=== PATIENT | male | born 1995 | race African-American/Black ===

== ENCOUNTER 2019-06-02 17:36 | Emergency (ER) | payer MEDICARE, MEDICAID, SELFPAY ==
[2019-06-02 17:42] VITALS: BP 115/65; PULSE 61; RESP 16; TEMP 36.3; O2SAT 100
--- NOTE | 2019-06-02 17:46 | ED.GENADULT ---
HPI - General Adult General Chief complaint: Urogenital-Male Stated complaint: Urinary problems Time Seen by Provider: 06/02/19 17:45 Source: patient Mode of arrival: ambulatory Limitations: no limitations History of Present Illness HPI narrative: 24-year-old male patient presents to the [facility] with complaints of urinary symptoms for the past week. Patient states he has had some burning with urination. Patient states he has been doing a water fast recently to where he is on 6 days of drinking only water and has not been eating. Patient states that he is sexually active with 2 partners and did not use protection. Patient states that he has been recently checked for STDs but it was in early May. Patient states he has been sexually active since then. Patient denies any penile discharge. Denies any fevers, lower abdominal pain, low back pain. Related Data Allergies Allergy/AdvReac Type Severity Reaction Status Date / Time No Known Allergies Allergy Uncoded 02/04/19 20:55 Review of Systems Review of Systems: Narrative: CONSTITUTIONAL: Denies fever, chills, or sweats. EYES: Denies visual changes, redness, or discharge. ENT: Denies rhinorrhea, congestion, sore throat, or otalgia. CARDIOVASCULAR: Denies chest pain, palpitations, or edema. RESPIRATORY: Denies cough or dyspnea. GASTROINTESTINAL: Denies abdominal pain, nausea, vomiting, or diarrhea. GENITOURINARY: Denies dysuria or hematuria. Positive pain with urination x1 week. SKIN: Denies rash or itching. MUSCULOSKELETAL: Denies back pain, joint pain, or myalgia. NEUROLOGIC: Denies headache, numbness, or weakness. PSYCHIATRIC: Denies anxiety or depression. PMFSH Comments At the time of my signature I agree with nursing past medical history, surgical, social, and family history. There is no relevant family history pertinent to the presenting complaint. Exam Narrative: Exam Narrative: GENERAL: Well-appearing, well-nourished, and in no acute distress. HEAD: Normocephalic, atraumatic. EYES: PERRLA and EOMI. ENT: Nares clear, no rhinorrhea or epistaxis. Mucous membranes moist. NECK: Supple. No lymphadenopathy CHEST: Clear to auscultation. No respiratory distress. HEART: Regular rate and rhythm. No murmur heard. Normal peripheral pulses. ABDOMEN: Soft, nontender, nondistended, normal active bowel sounds. No CVA tenderness on percussion. EXTREMITIES: Normal range of motion. No edema. SKIN: Warm, dry, no rash. NEURO: No focal deficits. Alert and oriented x3. Course Vital Signs Vital signs: Vital Signs Temperature 36.3 C L 06/02/19 17:42 Pulse Rate 61 06/02/19 17:42 Respiratory Rate 16 06/02/19 17:42 Blood Pressure 115/65 06/02/19 17:42 Pulse Oximetry 100 06/02/19 17:42 Temperature 36.3 C L 06/02/19 17:42 Pulse Rate 61 06/02/19 17:42 Respiratory Rate 16 06/02/19 17:42 Blood Pressure 115/65 06/02/19 17:42 Pulse Oximetry 100 06/02/19 17:42 Vital signs reviewed. Medical Decision Making Differential Diagnosis Differential Diagnosis: Differential diagnosis: Uncomplicated lower UTI, uncomplicated UTI, polynephritis, penile trauma,balanoposthitis, phimosis, paraphimosis, testicular torsion, epididymitis, prostatitis, varicocele, spermatocele, hydrocele, hernia. Gonorrhea, chlamydia, Trichomonas, bacterial vaginosis, herpes, HIV, yeast infection, urinary tract infection. Discussed with patient that there is no nitrates or leukocytes noted on his urine however there is some ketones noted. Discussed with him that that could be from the diet he is doing. Discussed with him that because he is sexually active and not using protection and does present with burning with urination I think that we should go ahead and just screen him for any STDs. Discussed with him we will also send his urine off to the lab for any UTI symptoms that could be occurring. Discussed with patient that if we are going to go ahead and test him for STDs today would like
[2019-06-02] MEDS: AZITHROMYCIN 250 MG TABLET 1000 MG PO (18:22)
[2019-06-02] MEDS: cefTRIAXone 250 MG VIAL IM (18:22)
[2019-06-02] MEDS: LIDOCAINE HCL 1% LOCAL INJ 20 ML VIAL IM (18:23)
== END 2019-06-02 18:45 | disposition home or self-care (01) ==
PROVIDERS: Emergency Provider Nurse Practitioner Family
DX: R30.0 Dysuria (principal)
CPT/HCPCS: 81003; 87086; 87491; 87591; 87661; 96372; 99213; A9270; G0463; J0696

== ENCOUNTER 2019-07-07 13:11 | Emergency (ER) | payer MEDICARE, MEDICAID, SELFPAY ==
[2019-07-07 13:16] VITALS: BP 127/64; PULSE 70; RESP 16; TEMP 36.3; O2SAT 100
--- NOTE | 2019-07-07 13:27 | ED.GENADULT ---
HPI - General Adult General Chief complaint: Urogenital-Male Stated complaint: std testing Time Seen by Provider: 07/07/19 13:30 Source: patient and RN notes reviewed Mode of arrival: ambulatory Limitations: no limitations History of Present Illness HPI narrative: This is a 24 years old male presents to the office for an evaluation of possible STD. He complains of urinary burning and discomfort for a couple days. Symptoms reminiscent his previous STDs. He was treated for gonorrhea and chlamydia and trichomonas on June 02. Stated he has been with the same partner since the treatment. His last sexual intercourse was June 17 however he did not have any symptoms until a couple days ago. He concerned that his partner did not completed her treatment. He admits to unprotected sex. He was made aware of health department testing for STD however he said that he does not have a ride to go there at this time that's why he came back here to get treated. Denies history of kidneystone. I reviewed his previous visit. General Chief complaint: Urogenital-Male Stated complaint: Urinary problems Time Seen by Provider: 06/02/19 17:45 Source: patient Mode of arrival: ambulatory Limitations: no limitations History of Present Illness HPI narrative: 24-year-old male patient presents to the [facility] with complaints of urinary symptoms for the past week. Patient states he has had some burning with urination. Patient states he has been doing a water fast recently to where he is on 6 days of drinking only water and has not been eating. Patient states that he is sexually active with 2 partners and did not use protection. Patient states that he has been recently checked for STDs but it was in early May. Patient states he has been sexually active since then. Patient denies any penile discharge. Denies any fevers, lower abdominal pain, low back pain. Related Data Home Medications Medication Instructions Recorded Confirmed biotin 07/07/19 melatonin 10 mg PO HS PRN 07/07/19 07/07/19 Allergies Allergy/AdvReac Type Severity Reaction Status Date / Time No Known Allergies Allergy Verified 07/07/19 13:22 Review of Systems Review of Systems: Narrative: CONSTITUTIONAL: Denies fever or feeling ill. ENT: Denies congestion CARDIOVASCULAR: Denies chest pain RESPIRATORY: Denies cough GASTROINTESTINAL: Denies abdominal pain, nausea,diarrhea. GENITOURINARY: Reports urinary pain only. Denies discharge or penile lesion SKIN: Denies rash MUSCULOSKELETAL: Denies acute back pain NEUROLOGIC: Denies lightheaded PMFSH Past Medical History Medical History Hx of chlamydia infection 05/2019 Social History Social History Smoking status: Never smoker Exam Narrative: Exam Narrative: GENERAL: This is a well-nourished, well-developed patient, in no apparent distress. CARDIOVASCULAR: Regular rate and rhythm without murmurs, gallops, or rubs. RESPIRATORY: Clear to auscultation. Breath sounds equal bilaterally. No wheezes, rales, or rhonchi. GASTROINTESTINAL: Abdomen soft, non-tender, nondistended. Bowel sounds are active. No hepato-splenomegaly, or palpable masses. No guarding. SKIN: warm, intact with no suspicious lesions or rash, good texture and turgor. NEURO: awake, alert, and oriented to person, place and time. There were no obvious focal neurologic abnormalities. Steady gait BACK:No flank tenderness. [place] Coma Scale Eye Opening: Spontaneous 4 [place]iel Coma Scale Motor: Obeys Commands 6 [place] Coma Scale Verbal: Oriented 5 Course Vital Signs Vital signs: Vital Signs Temperature 97.4 F L 07/07/19 13:16 Pulse Rate 70 07/07/19 13:16 Respiratory Rate 16 07/07/19 13:16 Blood Pressure 127/64 07/07/19 13:16 Pulse Oximetry 100 07/07/19 13:16 Temperature 97.4 F L 07/07/19 13:16 Pulse Rate 70
== END 2019-07-07 13:54 | disposition home or self-care (01) ==
PROVIDERS: Emergency Provider Nurse Practitioner
DX: Z04.89 Encounter for examination and observation for other specified reasons (principal)
CPT/HCPCS: 81003; 87086; 87491; 87591; 87661; 99213; G0463

== ENCOUNTER 2020-01-12 13:58 | Outpatient (CLI) | payer MEDICARE, MEDICAID, SELFPAY ==
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
[2020-01-12 16:12] LABS: HIV 1/2 Ab P24 Ag Result Negative (Negative)
[2020-01-12 17:44] LABS: Hepatitis B Surface Antigen Negative (Negative)
[2020-01-12 18:01] LABS: Hepatitis C Virus Antibody Negative (Negative)
[2020-01-13 07:28] LABS: Rapid Plasma Reagin Non-Reactive (NonReactive)
== END 2020-01-12 13:59 | disposition home or self-care (01) ==
PROVIDERS: PCP Family Medicine; Visit Provider Family Medicine
DX: Z11.3 Encounter for screening for infections with a predominantly sexual mode of transmission (principal); M25.562 Pain in left knee
CPT/HCPCS: 36415; 73562; 86592; 86703; 86803; 87340; 87491; 87591; G0432

== ENCOUNTER 2024-01-27 13:30 | Outpatient (RCR) | payer OTHER, SELFPAY ==
--- NOTE | 2023-11-03 15:44 | OPREHPOC ---
Outpatient Therapy Plan of Care This is a Multidisciplinary Plan of Care that may contain components documented by all disciplines (PT, OT, and ST.) PT Problem 1 PT Problem #1 Knowledge Deficit PT Goal 1 Goal 1* indep with HEP 2* correct use of assistive device Target Visit 10 PT Problem 2 PT Problem #2 Pain PT Goal 1 Goal 1* pain rating of 5/10 at worst 2* self assessment with LE functional scale of 70% limitation in activity level Target Visit 10 PT Problem 3 PT Problem #3 Impaired Range of Motion PT Goal 1 Goal increase L knee active flexion ROM to improve mobility skills: 1* sitting 90' Target Visit 10 PT Problem 4 PT Problem #4 Impaired Strength PT Goal 1 Goal increase L LE strength to improve mobility: 1* pt perform mat strengthening exercises x 20 reps with knee brace intact 2* supine/sit transfer without use of UEs to move his L leg Target Visit 10 PT Problem 5 PT Problem #5 Impaired Functional Mobility PT Goal 1 Goal 1* pt ambulate 200' with wheeled walker, L TDWB, indep on level surface 2* pt up/down 12 steps with bilateral hand rails, indep with single step pattern Target Visit 10
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
--- NOTE | 2023-11-03 15:46 | PCPTNOTE ---
called Dr Sherman's office to request the protocol for pt's rehab. She stated they would fax it to us.
--- NOTE | 2023-11-19 12:55 | PCPTNOTE ---
No call no show, pt was trying to find transportation to/from PT today. AKS
--- NOTE | 2023-11-20 07:45 | PCPTNOTE ---
CORRECTION: on 11-03-23 evaluation note: general exercise section: // bars: Hop on L LE , should have been hop on R LE ;
--- NOTE | 2023-11-28 15:22 | PCPTNOTE ---
pt brought in protocol from his dr for his knee rehab. It is to be scanned into the EMR.
--- NOTE | 2023-11-28 15:28 | PCPTNOTE ---
I talked with RN coordinator Stephanie [phone] about pt: increase groin pain with all supine motions, not wearing knee brace ~ 2 weeks, but did have on with yesterday's treatment, using walker and only walking short distances in home, on stairs, is sitting down and bumping up/down on his butt. She stated she would forward info to and call if there are any other ?s or concerns.
--- NOTE | 2023-12-10 09:43 | PCPTNOTE ---
contacted dr boone and left message for Stephanie: [phone], option 3: informing her of pt NOT using his knee brace and is not walking, coming to dept in w/c. Pt was discussed with UTE Alvarez. She is continuing to reinforce to pt to use the knee brace, walk with brace on TDWB.
--- NOTE | 2023-12-23 14:31 | OPREHPOC ---
Outpatient Therapy Plan of Care This is a Multidisciplinary Plan of Care that may contain components documented by all disciplines (PT, OT, and ST.) PT Problem 1 PT Problem #1 Knowledge Deficit PT Goal 1 Goal / Goal Update 1* indep with HEP 2* correct use of assistive device Target Visit 10 Progress Met PT Goal 2 Goal / Goal Update 12-23-23 progress goals met continue towards goals--progress HEP and to cane, then no device Target Visit 20 PT Problem 2 PT Problem #2 Pain PT Goal 1 Goal / Goal Update 1* pain rating of 5/10 at worst 2* self assessment with LE functional scale of 70% limitation in activity level Target Visit 10 Progress Partially Met PT Goal 2 Goal / Goal Update 12-23-23 progress goal 2 met; #1 decreased to 6/10 NEW GOALS 1* pain rating of 4/10 at worst 2* self assessment with LE functional scale of 50% limitation in activity level Target Visit 20 PT Problem 3 PT Problem #3 Impaired Range of Motion PT Goal 1 Goal / Goal Update increase L knee active flexion ROM to improve mobility skills: 1* sitting 90' Target Visit 10 Progress Met PT Goal 2 Goal / Goal Update 12-23-23 progress goal met NEW GOAL: active ROM of L knee in sitting 1* extension 0' 2* flexion 120' Target Visit 20 PT Problem 4 PT Problem #4 Impaired Strength PT Goal 1 Goal / Goal Update increase L LE strength to improve mobility: 1* pt perform mat strengthening exercises x 20 reps with knee brace intact 2* supine/
--- NOTE | 2023-12-23 14:31 | PTOPPROG ---
Assessment and note entered by Munira Collier, PT Progress Report Assessment Status Progress Diagnosis ACL reconstruction with hamstring autograft & partial lateral meniscectomy ICD-10 Condition Codes (PT) Pain in left knee M25.562,Difficulty Walking R26.2 ,Weakness R53.1 Onset 10-31-23 Subjective Information started using the cane for short distances in the house, 2-3 days ago, otherwise, using the wheeled walker; not wearing the knee brace; have started driving, standing in the kitchen to cook- with sit rests between tasks; have help with cleaning the house, to see dr next week; PAIN: in the past week 3-6/10; pulling, tight in knee increase pain: walking and up on feet ~ 10 min decrease pain: sit, rest, elevate, massage; take alequang FINNN is sleeping ok-- knee not disrupting his sleep Assessment PT Clinical Summary Will has received a total of 10 PT sessions. Compared to the initial evaluation: he has improved in all areas: pain from 0-8/10 to 3-6/10 ; strength of L hip and knee--able to perform 20 reps of mat exercises; 2 minute walking test distance from 40' to 240' with wheeled walker; self assessment LE functional scale from 100% to 69% limitation in activity level; education for gait training and HEP. He has not been wearing the knee brace due to discomfort and not fitting well. The goals were achieved. Continue PT treatment, with progression to order level of Phase II treatment plan. Plan of Care Interventions Electrical Stimulation,Hot Pack/Cold Pack,Manual Therapy,Neuro Re-education,Patient/Caregiver Education,Therapeutic Activities,Therapeutic Exercise,Other PT Services Indicated Yes Treatment Frequency and 2x/wk for 10 visits Duration These treatments will address the objective and functional deficits as defined above. The patient will be advanced safely and appropriately in order for the patient to progress towards his/her prior level of function. Additional exercises will be introduced and as well as a comprehensive home exercise program upon discharge, if needed, ?to ensure carryover of functional gains achieved in the clinic. This treatment plan has been reviewed and agreement upon by the patient.
--- NOTE | 2024-01-28 09:03 | PCPTNOTE ---
This treatment is being continued on visit number [id number] Please see documentation on both accounts to view progress. Completed interventions, outcomes, and problems have been marked as Inactive to facilitate the copying of the Care plan routine for recurring accounts.
== END 2024-01-28 08:34 | disposition home or self-care (01) ==
LOC: ANHPT 13:30
PROVIDERS: PCP Family Medicine
DX: S83.422D Sprain of lateral collateral ligament of left knee, subsequent encounter (principal); M23.8X2 Other internal derangements of left knee; M25.562 Pain in left knee; G89.29 Other chronic pain
CPT/HCPCS: 97110; 97112; 97116; 97140; 97161; 97530

== ENCOUNTER 2024-08-12 09:45 | Outpatient (RCR) | payer OTHER, SELFPAY ==
--- NOTE | 2024-05-25 10:02 | OPREHPOC ---
Outpatient Therapy Plan of Care This is a Multidisciplinary Plan of Care that may contain components documented by all disciplines (PT, OT, and ST.) PT Problem 1 PT Problem #1 Knowledge Deficit PT Goal 1 Goal / Goal Update *indep with HEP Target Visit 8 PT Problem 2 PT Problem #2 Pain PT Goal 1 Goal / Goal Update * pt report pain at worst rating of 4/10 to increase activity tolerance Target Visit 8 PT Problem 3 PT Problem #3 Impaired Flexibility PT Goal 1 Goal / Goal Update *increase flexibility of L hip and knee, to decrease strain over L knee: * hamstring length with supine SLR 65' Target Visit 8 PT Goal 2 Goal / Goal Update * increase anterior hip/quad length with prone knee flexion 110' Target Visit 8 PT Problem 4 PT Problem #4 Impaired Strength PT Goal 1 Goal / Goal Update increase strength of L hip and knee to support knee joint and stability: * hip extension and adduction to 4+/5 Target Visit 8 PT Goal 2 Goal / Goal Update * single leg standing PF L x 15 reps with good stability Target Visit 8
--- NOTE | 2024-05-25 10:02 | PTOPEVAL1 ---
Assessment and note entered by Munira Collier, PT Evaluation Information Assessment Status Evaluation ICD-10 Condition Codes (PT) Pain in left knee M25.562,Encounter for other orthopedic aftercare Z47.89 Onset 10-31-23 Subjective Information October 2023- pt had L knee ACL reconstruction with hamstring tendon autograft, partial lateral meniscectomy, LCL reconstruction with Achilles tendon autograft; had PT here post op; returns with new orders: strengthening knee and decrease pain; no basket ball playing at this time, no running but can shoot baskets; have not been playing basketball, have been walking 20-30 minutes at time; have not been doing any of the leg exercises anymore; attending college classes. trying to stay active-- taking agility classes with his dog and done water exercises a few times. Reported Pain Level Pain Score Self Report Additional Pain Score Comments pain range in the past week 4-6/10; medial and distal patellar areas; annoying pain, little burning,gastroc tight increase pain: walking 30 minutes; carrying 30# up the stairs decrease pain: sit, rest, stretching extension; massage sleeve for knee sometimes knee swells Assessment PT Clinical Summary Will is s/p L ACL reconstruction, partial lateral meniscectomy, LCL reconstruction in October 2023. He attended therapy here post op and was d/c from therapy. Returns with orders for PT strengthening and pain control. LE functional scale rating of 63% limitation in activity level. The order states NO running. With the evaluation: pain increases with L knee flexion end range of motion; spasms and tenderness over distal hamstring and proximal gastroc; tightness over hamstring, anterior hip/ quad muscles; weakness of hip extension and adduction muscles; decreased ability to perform single leg PF. Skilled PT services are indicated: modalities to decrease pain and spasms, therapeutic exercises to increase flexibility and strength of R hip and knee, with education for HEP and pain management. Plan of Care Interventions Electrical Stimulation,Hot Pack/Cold Pack,Manual Therapy,Neuro Re-education,Patient/Caregiver Education,Therapeutic Activities,Therapeutic Exercise,Ultrasound,Other Other Interventions taping PT Services Indicated Yes Treatment Frequency and 1-2x/wk for 8 visits Duration These treatments will address the objective and functional deficits as defined above. The patient will be advanced safely and appropriately in order for the patient to progress towards his/her prior level of function. Additional exercises will be introduced and as well as a comprehensive home exercise program upon discharge, if needed, ?to ensure carryover of functional gains achieved in the clinic. This treatment plan has been reviewed and agreement upon by the patient.
--- NOTE | 2024-07-05 17:57 | OPREHPOC ---
Outpatient Therapy Plan of Care This is a Multidisciplinary Plan of Care that may contain components documented by all disciplines (PT, OT, and ST.) PT Problem 1 PT Problem #1 Knowledge Deficit PT Goal 1 Goal / Goal Update *indep with HEP Target Visit 8 Progress Met PT Problem 2 PT Problem #2 Pain PT Goal 1 Goal / Goal Update * pt report pain at worst rating of 4/10 to increase activity tolerance Target Visit 18 Progress Partially Met PT Problem 3 PT Problem #3 Impaired Flexibility PT Goal 1 Goal / Goal Update *increase flexibility of L hip and knee, to decrease strain over L knee: * hamstring length with supine SLR 65' Target Visit 18 Progress Partially Met PT Goal 2 Goal / Goal Update * increase anterior hip/quad length with prone knee flexion 110' Target Visit 18 Progress Partially Met PT Problem 4 PT Problem #4 Impaired Strength PT Goal 1 Goal / Goal Update increase strength of L hip and knee to support knee joint and stability: * hip extension and adduction to 4+/5 Target Visit 18 Progress Partially Met PT Goal 2 Goal / Goal Update * single leg standing PF L x 15 reps with good stability Target Visit 8 Progress Met
--- NOTE | 2024-07-05 17:57 | PTOPPROG ---
Assessment and note entered by Davon Villa, PT Evaluation Information Assessment Status Progress ICD-10 Condition Codes (PT) Pain in left knee M25.562,Encounter for other orthopedic aftercare Z47.89 Onset 10-31-23 Subjective Information Patient reports that overall he is feeling improvement, but still does not feel strong enough to return to weight training and resistance exercise. Still limited by pain and with increased swelling comes increased pain. Would like to continue therapy to progress towards higher level strength training. Assessment PT Clinical Summary Patient has seen improvement in both knee ROM and strength. He was very active over the past wee including a trip to [place] which involved a lot of walking and knee flexed positioning. 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 Will continue to benefit from skilled therapy to address. Plan of Care Interventions Electrical Stimulation,Hot Pack/Cold Pack,Manual Therapy,Neuro Re-education,Patient/Caregiver Education,Therapeutic Activities,Therapeutic Exercise,Ultrasound,Other Other Interventions taping PT Services Indicated Yes Treatment Frequency and 2/x week for 10 visits Duration These treatments will address the objective and functional deficits as defined above. The patient will be advanced safely and appropriately in order for the patient to progress towards his/her prior level of function. Additional exercises will be introduced and as well as a comprehensive home exercise program upon discharge, if needed, ?to ensure carryover of functional gains achieved in the clinic. This treatment plan has been reviewed and agreement upon by the patient.
--- NOTE | 2024-07-07 15:51 | PCPTNOTE ---
Pt canceled due to no ride.
--- NOTE | 2024-08-16 16:46 | PCPTNOTE ---
pt did not show for today's reevaluation appt. He called 10 minutes after appt time, stating he was caught in traffic and would be late. 30 minutes after appt time, he was not yet here. Clerical staff called him to reschedule the appt.
--- NOTE | 2024-09-01 07:56 | PCPTNOTE ---
This treatment is being continued on visit number [id number] Please see documentation on both accounts to view progress. Completed interventions, outcomes, and problems have been marked as Inactive to facilitate the copying of the Care plan routine for recurring accounts.
== END 2024-09-02 23:59 | disposition home or self-care (01) ==
LOC: ANHPT 09:45
PROVIDERS: PCP Family Medicine
DX: M25.562 Pain in left knee (principal); M23.8X2 Other internal derangements of left knee; S83.422D Sprain of lateral collateral ligament of left knee, subsequent encounter; G89.29 Other chronic pain
CPT/HCPCS: 97014; 97016; 97110; 97140; 97161; 97530; G0283

== ENCOUNTER 2024-09-01 11:20 | Outpatient (RCR) | payer OTHER, SELFPAY ==
--- NOTE | 2024-09-01 14:28 | OPREHPOC ---
Outpatient Therapy Plan of Care This is a Multidisciplinary Plan of Care that may contain components documented by all disciplines (PT, OT, and ST.) PT Problem 1 PT Problem #1 Knowledge Deficit PT Goal 1 Goal / Goal Update *indep with HEP 09-01-24 d/c goal met Target Visit 8 Progress Met PT Problem 2 PT Problem #2 Pain PT Goal 1 Goal / Goal Update * pt report pain at worst rating of 4/10 to increase activity tolerance 09-01-24 d/c goal not met; 6/10 at worst Target Visit 18 Progress Not Met PT Problem 3 PT Problem #3 Impaired Flexibility PT Goal 1 Goal / Goal Update *increase flexibility of L hip and knee, to decrease strain over L knee: * hamstring length with supine SLR 65' 09-01-24 d/c goal met Target Visit 18 Progress Met PT Goal 2 Goal / Goal Update * increase anterior hip/quad length with prone knee flexion 110' 09-01-24 d/c goal met Target Visit 18 Progress Met PT Problem 4 PT Problem #4 Impaired Strength PT Goal 1 Goal / Goal Update increase strength of L hip and knee to support knee joint and stability: * hip extension and adduction to 4+/5 09-01-24 d/c goal met Target Visit 18 Progress Met PT Goal 2 Goal / Goal Update * single leg standing PF L x 15 reps with good stability 09-01-24 d/c goal met Target Visit 8 Progress Met
--- NOTE | 2024-09-01 14:28 | PTOPDC ---
Assessment and note entered by Munira Collier, PT Assessment Status Discharge ICD-10 Condition Codes (PT) Pain in left knee M25.562,Encounter for other orthopedic aftercare Z47.89 Onset 10-31-23 Subjective Information have not had the MRI yet, scheduling and issues with insurance authorization; do not have a follow up dr eldridge until after the MRI; still having problems with straightening my knee; stairs still a little struggle; swelling and pain continue; have been doing the exercises and going to the gym ready to be finished with therapy and keep up with the exercises. Reported Pain Level Pain Score Self Report Additional Pain Score Comments pain range in the past week 3-6/10; ache in knee that gets worse when put weight on it; really tight muscle when straighten knee; report up walking/standing tolerance 4-5 hours then have to sit and rest issues on ramps and hills, uneven ground Assessment PT Clinical Summary Will has received a total of 17 PT sessions, from May 25 to today. He called/canceled 1 and did not show for 2 appointments. He presents today with pain range of 3-6/10; pain at distal patellar tendon and lateral patellar areas; reported walking/standing activity tolerance of 4-5 hours; increase hamstring length to supine SLR 65' and anterior hip quad length with prone knee flexion 110'; increase strength of L hip extension and abduction; education completed for HEP. Self assessment with LE functional scale rating of 58% limitation in activity level. He reports pain increases with stairs, walking on uneven surface or ramps. R knee active ROM in sitting 0-120', with reports of pain increase at end range of flexion. The goals were achieved, except pain rating at worst. Discharge PT services. He is to continue to increase strength and activity as tolerated. Plan of Care PT Services Indicated No
== END 2024-11-17 11:46 | disposition home or self-care (01) ==
LOC: ANHPT 11:20
PROVIDERS: PCP Family Medicine
DX: M25.562 Pain in left knee (principal); M23.8X2 Other internal derangements of left knee; S83.422D Sprain of lateral collateral ligament of left knee, subsequent encounter; G89.29 Other chronic pain
CPT/HCPCS: 97110; 97530

== ENCOUNTER 2025-03-02 13:30 | Outpatient (RCR) | payer OTHER, SELFPAY ==
--- NOTE | 2024-12-29 12:07 | OPREHPOC ---
Outpatient Therapy Plan of Care This is a Multidisciplinary Plan of Care that may contain components documented by all disciplines (PT, OT, and ST.) PT Problem 1 PT Problem #1 Knowledge Deficit PT Goal 1 Goal / Goal Update *independent with HEP Target Visit 8 PT Problem 2 PT Problem #2 Pain PT Goal 1 Goal / Goal Update * pt report pain rating at worst of 4/10 Target Visit 8 PT Problem 3 PT Problem #3 Impaired Flexibility PT Goal 1 Goal / Goal Update increase hip flexibility, to improve position and tracking of knee: 1* hamstring length with supine SLR 70' 2* anterior hip-quad length with prone knee flexion 115' Target Visit 8 PT Problem 4 PT Problem #4 Impaired Strength PT Goal 1 Goal / Goal Update increase strength of L hip and knee, to improve running and activity tolerance: 1* pt report standing/walking tolerance of 90 minutes 2* pt able to tolerate running on the treadmill at 3.0 mph for 5 minutes 3* L leg press x 5 reps 170# Target Visit 8
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
--- NOTE | 2025-01-28 14:10 | PCPTNOTE ---
pt did not show for today's reeval appt; called and left voice mail.
--- NOTE | 2025-03-02 14:26 | OPREHPOC ---
Outpatient Therapy Plan of Care This is a Multidisciplinary Plan of Care that may contain components documented by all disciplines (PT, OT, and ST.) PT Problem 1 PT Problem #1 Knowledge Deficit PT Goal 1 Goal / Goal Update *independent with HEP 03-02-25 d/c goal met Target Visit 8 Progress Met PT Problem 2 PT Problem #2 Pain PT Goal 1 Goal / Goal Update * pt report pain rating at worst of 10 03-02-25 d/c goal met, 06/14 Target Visit 8 Progress Met PT Problem 3 PT Problem #3 Impaired Flexibility PT Goal 1 Goal / Goal Update increase hip flexibility, to improve position and tracking of knee: 1* hamstring length with supine SLR 70' 2* anterior hip-quad length with prone knee flexion 115' 03-02-25 d/c goal 1 met; #2 is 105' Target Visit 8 Progress Partially Met PT Problem 4 PT Problem #4 Impaired Strength PT Goal 1 Goal / Goal Update increase strength of L hip and knee, to improve running and activity tolerance: 1* pt report standing/walking tolerance of 90 minutes 2* pt able to tolerate running on the treadmill at 3.0 mph for 5 minutes 3* L leg press x 5 reps 170# 03-02-25 d/c goal 1 met; #2 is 30 seconds at 3.0; #3 is 140# Target Visit 8 Progress Partially Met
--- NOTE | 2025-03-02 14:26 | PTOPDC ---
Assessment and note entered by Munira Collier, PT Assessment Status Discharge ICD-10 Condition Codes (PT) Pain in left knee M25.562,Weakness R53.1 Onset October 2023 Subjective Information knee is doing better; straightening the knee is stronger; flexibility is good; past 2 weeks have been going to the gym- problems with knee extension strength; doing all the other resistance exercises; have not tried running, been afraid I will reinjure my knee; Reported Pain Level Pain Score 3: Self Report Additional Pain Score Comments pain range of 2-3/10; sharp pain medial-superior knee increase pain: moving from knee bent to knee straighten out reported walking/standing tolerance of 3-4 hours with activity at home Assessment PT Clinical Summary Will has received a total of 8 PT sessions, from December 29 to today. He did not show for one appointment. With today's assessment compared to initial eval: pain rating from 2-6/10 to 2-3/10; self assessment with LE functional scale rating 55 to 58% limitation in activity level; reported standing/walking tolerance from 1 hour to 3-4 hours; increase hamstring flexibility with supine SLR from 6o to 70'; anterior hip/quad length is the same with prone knee flexion 105'; L only leg press at 140# from 4 reps to 7 reps tolerance; running on the treadmill at 3.0 mph is the same at 30 seconds, then stop due to L knee weakness; education completed for HEP. He continues to have pain with knee extension from 30' to 0'. The goals were partially achieved. Discharge PT. He is to continue going to the fitness center and progression of activity as tolerated. Plan of Care PT Services Indicated No
--- NOTE | 2025-03-02 14:30 | PCPTNOTE ---
pt was 15 minutes late for today's reeval appt.
== END 2025-03-02 16:40 | disposition home or self-care (01) ==
LOC: ANHPT 13:30
PROVIDERS: PCP Internal Medicine
DX: Z48.89 Encounter for other specified surgical aftercare (principal); S89.92XS Unspecified injury of left lower leg, sequela; Z98.890 Other specified postprocedural states
CPT/HCPCS: 97016; 97110; 97116; 97140; 97161; 97530